=== PATIENT | female | born 1990 | race American Indian/Alaskan Native ===

== ENCOUNTER 2018-03-07 08:21 | Emergency (ER) | payer OTHER ==
[2018-03-07 08:40] VITALS: RESP 18
--- NOTE | 2018-03-07 09:05 | C.PDOC ---
History Of Present Illness 27 year old female presents to the ED for evaluation of worsening abdominal cramping and suprabupic pain associated with subjective fever and chills that began 1 day ago. The patient reports having cramps prior to starting her menst rual cycle 1 day ago, the cramps worsened approximately 5:30am today, not similar to previous cramps which prompted ED visit. Admits to taking Tylenol with no improvement in symptoms. Denies nausea, vomiting, dysuria, and any other associated symptoms. Surgical Hx: denies. Allergies: Aspirin. Time Seen by Provider: 03/07/18 09:02 Chief Complaint (Nursing): Abdominal Pain History Per: Patient History/Exam Limitations: no limitations Onset/Duration Of Symptoms: Days (x1) Current Symptoms Are (Timing): Still Present Location Of Pain/Discomfort: Suprapubic Recent travel outside of the [place]: No Past Medical History Reviewed: Historical Data, Nursing Documentation, Vital Signs Vital Signs: Last Vital Signs Temp 98.5 F 03/07/18 08:36 Pulse 91 H 03/07/18 08:36 Resp 18 03/07/18 08:36 BP 134/85 03/07/18 08:36 Pulse Ox 100 03/07/18 08:36 - Medical History PMH: Diabetes Family History: States: Diabetes, Hypertension Denies: CAD - Social History Hx Alcohol Use: No Hx Substance Use: No - Immunization History Hx Tetanus Toxoid Vaccination: No Hx Influenza Vaccination: No Hx Pneumococcal Vaccination: No Review Of Systems Except As Marked, All Systems Reviewed And Found Negative. Constitutional: Positive for: Fever (subjective. ), Chills Gastrointestinal: Positive for: Abdominal Pain (suprapubic. ), Other (cramping. ). Negative for: Nausea, Vomiting Genitourinary: Negative for: Dysuria Physical Exam - Physical Exam Appears: Well, Non-toxic, No Acute Distress Skin: Normal Color, Warm, Dry Head: Atraumatic, Normacephalic Eye(s): bilateral: Normal Inspection Oral Mucosa: Moist Neck: Normal ROM, Supple Chest: Symmetrical, No Deformity Cardiovascular: Rhythm Regular, No Murmur Respiratory: Normal Breath Sounds, No Rales, No Rhonchi, No Wheezing, Other (NARD) Gastrointestinal/Abdominal: Soft, Tenderness (periumbilical.) ED Course And Treatment - Laboratory Results Result Diagrams: 03/07/18 09:44 03/07/18 11:02 O2 Sat by Pulse Oximetry: 100 (RA) Pulse Ox Interpretation: Normal Reevaluation Time: 13:13 Reassessment Condition: Improved Medical Decision Making Medical Decision Making: Plan: -CT ABD & Pelvis IV Constrast only -Blood sent. -Macrobid -Pyridium Progress/Update: Due to Aspirin allergies patient offered narcotics. Patient refused narcotics at this time. Patient stable for discharge home. Prescribed Ultram and Glucophage. Advised to return to the ED if symptoms worsen. Disposition Counseled Patient/Family Regarding: Studies Performed, Diagnosis, Need For Followup - Disposition Referrals: YOUR,PMD [Other] Disposition: HOME/ ROUTINE Disposition Time: 13:12 Condition: IMPROVED Prescriptions: Tramadol HCl [Ultram] 50 mg PO QID #10 tab Instructions: Acute Pelvic Pain (DC) Forms: [employer] (German) - Clinical Impression Clinical Impression: Pelvic pain - Scribe Statement The provider has reviewed the documentation as recorded by the Scribe (Joyce Loza) Provider Attestation: All medical record entries made by the Scribe were at my direction and personally dictated by me. I have reviewed the chart and agree that the record accurately reflects my personal performance of the history, physical exam, medical decision making, and the department course for this patient. I have also personally directed, reviewed, and agree with the discharge instructions and d isposition.
[2018-03-07 09:50] LABS: BASO # 0.1 K/uL (0.0-0.2); BASO % 0.5 % (0.0-2.0); EOS % 0.3 % (0.0-4.0); LYMPH # 1.9 K/uL (1.0-4.3); LYMPH % 15.9 % (20.0-40.0); MEAN CELL VOLUME 77.6 fL (81.0-99.0); MEAN CORPUSCULAR HEMOGLOBIN 24.4 pg (27.0-31.0); MEAN CORPUSCULAR HGB CONC 31.4 g/dL (33.0-37.0); MEAN PLATELET VOLUME 9.8 fL (7.2-11.7); MONO # 0.6 K/uL (0.0-0.8); MONO % 5.3 % (0.0-10.0); NEUT # 9.5 K/uL (1.8-7.0); RBC 4.93 Mil/uL (3.80-5.20); RED CELL DISTRIBUTION WIDTH 16.8 % (11.5-14.5); WHITE BLOOD COUNT 12.2 K/uL (4.8-10.8)
[2018-03-07 10:01] LABS: URINE CLARITY SLIGHT-CLOUDY (Clear); URINE COLOR RED (YELLOW)
[2018-03-07 10:02] LABS: URINE BILIRUBIN NEGATIVE (NEGATIVE); URINE BLOOD LARGE (NEGATIVE); URINE GLUCOSE (UA) 100 mg/dL (Normal); URINE PROTEIN > 300 mg/dL (NEGATIVE)
[2018-03-07 10:03] LABS: SQUAMOUS EPITHIAL 1 /hpf (0-5); URINE LEUKOCYTE ESTERASE SMALL Leu/uL (Negative)
[2018-03-07 11:32] LABS: BLOOD UREA NITROGEN 8 mg/dL (7-17); CALCIUM 9.1 mg/dl (8.6-10.4); GFR NON-AFRICAN AMERICAN > 60
[2018-03-07] MEDS ORDERED: Iodixanol 320 MG/ML 100 ML BOTTLE IV ONE (11:54)
--- NOTE | 2018-03-07 13:04 | CT ---
Date of service: 03/07/2018 PROCEDURE: CT Abdomen and Pelvis with contrast HISTORY: Abdominal pain RO APPY COMPARISON: None available. TECHNIQUE: CT scan of the abdomen and pelvis was performed after administration of intravenous contrast. Oral contrast was not administered. Coronal and sagittal reformatted images were obtained. Contrast dose: 100 mL Visipaque Radiation dose: Total exam DLP = 926.12 mGy-cm. This CT exam was performed using one or more of the following dose reduction techniques: Automated exposure control, adjustment of the mA and/or kV according to patient size, and/or use of iterative reconstruction technique. FINDINGS: LOWER THORAX: The visualized lungs are clear. LIVER: Mild hepatomegaly and fatty liver. Normal homogeneous enhancement. No gross lesion or ductal dilatation. GALLBLADDER AND BILE DUCTS: Well distended. No calcified gallstones, wall thickening or pericholecystic fluid. PANCREAS: Normal in size with homogeneous enhancement. No gross lesion or ductal dilatation. SPLEEN: Normal in size and appearance. ADRENALS: No discrete nodule. KIDNEYS AND URETERS: Normal in size with homogeneous enhancement. There is moderate right hydronephrosis and moderate dilatation of the proximal mid and proximal aspect of the distal ureter the level of the mid pelvis. The distal most ureter is not dilated. No obstructive uropathy. The left ureter is not dilated. No left hydronephrosis. VASCULATURE: No aortic aneurysm. BOWEL: Evaluation of the bowel is limited in the absence of oral contrast. The small bowel loops are normal in caliber. There is moderate amount of stool in the colon and fecal stasis in the rectum. No bowel wall thickening or obstruction. APPENDIX: Normal appendix. PERITONEUM: Small amount of free fluid in the pelvis is likely physiologic. No free intraperitoneal air. LYMPH NODES: No enlarged lymph nodes. BLADDER: Partially distended. There is mild circumferential mural thickening of the urinary bladder wall REPRODUCTIVE: The uterus is normal in size. BONES: No acute fracture. Within normal limits for the patient's age. OTHER FINDINGS: None. IMPRESSION: Moderate right hydronephrosis and moderate dilatation of the proximal, mid and proximal aspect of the distal ureter to the level of the mid pelvis without obstructive uropathy. The distal most right ureter is not dilated. No evidence for pyelonephritis. The urinary bladder is partially distended. There is mild circumferential mural thickening of the urinary bladder wall which could be related to underdistention however cystitis cannot be excluded. Please correlate with urine analysis. No CT evidence for acute appendicitis.
[2018-03-07 13:50] VITALS: BP 126/73; PULSE 69; TEMP 98; O2SAT 98
== END 2018-03-07 13:49 | disposition home or self-care (01) ==
LOC: C.ER 08:21
DX: R10.2 Pelvic and perineal pain (principal)
CPT/HCPCS: 74177; 80048; 81001; 81025; 85025; 99285; Q9967